=== PATIENT | male | born 1995 | race Two or more races ===

== ENCOUNTER 2020-10-16 07:58 | Outpatient (REF) | payer BC, SELFPAY ==
--- NOTE | ~2020-10-16 | US_ITS ---
EXAMINATION: US ABDOMEN LIMITED CLINICAL INFORMATION: Intra-abdominal and pelvic swelling, mass and lump. COMPARISON: None TECHNIQUE: Real-time imaging of the umbilical lump. FINDINGS: Targeted ultrasound of area of clinical concern. There is an umbilical hernia present, with a neck of approximately 1.2 cm. Hernia sac measures approximately 2.1 x 1.1 cm. Echogenic material within the hernia, with technologist reporting peristalsis, suggesting herniating bowel. Technologist reports hernia is painful. Incarcerated hernia cannot be excluded. US/US abdomen limited IMPRESSION: Umbilical hernia with a neck of approximately 2.1 cm. Peristalsis in the herniating tissue suggesting herniated bowel. Technologist reports hernia is painful. Incarcerated hernia cannot be excluded. Recommend close clinical correlation and management. Consider further evaluation with CT scan. This critical result was discussed with Brunilda Schwartz MD at 1625 hours on 10/16/2020 and it was ascertained that the content and urgency of the report was understood at the time of direct communication.
== END 2020-10-16 07:59 | disposition home or self-care (01) ==
LOC: HO.HMGCX 07:58
PROVIDERS: Visit Provider Nurse Practitioner Family
DX: R19.00 Intra-abdominal and pelvic swelling, mass and lump, unspecified site (principal)
CPT/HCPCS: 76705

== ENCOUNTER → 2020-11-10 14:03 | Outpatient (BNVA) | payer BC, SELFPAY | PROVIDERS: PCP Internal Medicine; Referring Provider Internal Medicine; Visit Provider Surgery ==

== ENCOUNTER 2020-11-25 08:23 | Day surgery (SDC) | payer BC, SELFPAY ==
[2020-11-19 11:00] VITALS: BMI 23.8
--- NOTE | 2020-11-24 08:34 | HO.ANESPROP2 ---
Documented by User: Emily Abdi 11/24/20 08:34 HPI - Anesthesia Eval Consult details Narrative: 25yo M for Hernia Repair Umbilical, Poss Mesh PMFSH Active Problems Active Problems: All Active Problems (Updated 11/10/20 @ 14:33 by Home Cabrera MD) Abdominal mass (Acute) Hernia (Acute) Umbilical hernia (Acute) No active medical problems (Acute) Past Medical History Medical History No active medical problems Umbilical hernia Surgical History Surgical History No significant past surgical history Social History Social History Alcohol intake: never Smoking Status: Never smoker Use of substances other than those prescribed or required for medical reasons: No Have you been hit, kicked, punched, or otherwise hurt by someone within the past year? If so, by whom?: No Are you DNR?: No Advance Directives: No Advance Directives Information Provided: No Advance Directives on File: No Recently lost weight without trying: No Eating poorly because of decreased appetite: No Nutrition Risks: No Nutritional Risk Meds Allergies Allergy/AdvReac Type Severity Reaction Status Date / Time No Known Allergies Allergy Unverified 10/07/20 11:56 Home Medications Medication Instructions Recorded Confirmed Last Taken Type No Known Home Meds 10/07/20 11/19/20 Unknown History Exam Exam Date and Time: November 24, 2020 0834 Height,Weight and Vital Signs: Height 5 ft 6 in Weight 67 kg Assessment and Plan Assessment Anesthesia Assessment: Chart Reviewed Documented by User: Norma Mercado 11/25/20 09:04 PMFSH Past Medical History Medical History No active medical problems Umbilical hernia Surgical History Surgical History No significant past surgical history Social History Social History Alcohol intake: never Smoking Status: Never smoker Use of substances other than those prescribed or required for medical reasons: No Have you been hit, kicked, punched, or otherwise hurt by someone within the past year? If so, by whom?: No Are you DNR?: No Advance Directives: No Advance Directives Information Provided: No Advance Directives on File: No Recently lost weight without trying: No Eating poorly because of decreased appetite: No Nutrition Risks: No Nutritional Risk Meds Allergies Allergy/AdvReac Type Severity Reaction Status Date / Time No Known Allergies Allergy Unverified 10/07/20 11:56 Home Medications Medication Instructions Recorded Confirmed Last Taken Type No Known Home Meds 10/07/20 11/19/20 Unknown History Exam Airway Mallampati Class: II TM Dist: >3cm Neck ROM: Full Assessment and Plan Assessment Anesthesia Assessment: Anesthesia Plan Discussed and Chart Reviewed Final Anesthetic Review NPO: Yes ASA Class: I Final Preanesthetic Review: No Changes in Pt Med Stat, Meds/Allgs Chart Reviewed, Consent Obtained/Reviewed and Anes Risks/Benef Reviewed Patient Risk: Low Procedure Risk: Low Assessment/Block/Sedation in SS: Assess/Block/Sedation-SS Anesthetic Plan Anesthetic Plan: GA Disposition: Standard PACU
[2020-11-25] VITALS (9 sets, daily range): BP systolic 89–122; BP diastolic 50–69; PULSE 56–85; RESP 16; TEMP 36.4–37.2; O2SAT 98–100
[2020-11-25] MEDS: Lactated Ringers 1,000 ML 100 ML IVCONT (09:03)
--- NOTE | 2020-11-25 09:15 | MHC.SHP ---
Pre-Procedural Eval Section B Chief Complaint: Umbilical Hernia Allergies: Allergies Allergy/AdvReac Type Severity Reaction Status Date / Time No Known Allergies Allergy Unverified 10/07/20 11:56 Plan I have reviewed the history and physical and performed a pertinent physical examination on my patient. No changes have occurred unless specified.
--- NOTE | 2020-11-25 10:06 | P.BOP_ITS ---
Brief Operative Note Date of Service: 11/25/20 Pre-op diagnosis: umbilical hernia Post-op diagnosis: same Procedure: repair of umbilical hernia with mesh Implants: mesh Surgeon: Home Cabrera MD Anesthesia: GLMA Was an [employer] Crewmember used for this Procedure?: No Estimated blood loss (mL): 2 Pathology: none sent Condition: stable Disposition: PACU
--- NOTE | 2020-11-25 10:08 | P.OP_ITS ---
Operative Note Operative Note Date of Service: 11/25/20 Narrative: Preop diagnosis: Umbilical hernia Postop diagnosis: Umbilical hernia Procedure: Repair of umbilical hernia Surgeon: Home Cabrera MD Fire Control System Installer: Claudy Gifford PA student The patient is a 25-year-old male with a mass on the infraumbilical area consistent with umbilical hernia. He wanted to proceed with repair in view of symptoms. He understood the technique of the procedure as well as the risks, benefits, and alternatives His was brought the operating room and placed supine on table under general anesthesia via laryngeal mask airway. A surgical time-out was done. The patient received cefazolin 2 g IV preoperatively The abdomen was prepped and draped in the usual sterile fashion. I infiltrated the planned line of incision with lidocaine 1%. I made a transverse curvilinear incision in the infraumbilical margin using a blade 15. This was carried down through the full-thickness of the skin and subcutaneous fat with electrocautery until we were able to visualize hernia containing fat. I lifted the umbilicus as a flap off of the hernia using sharp dissection with Metzenbaum scissors and electrocautery. I then proceeded to continue to sharply dissect the hernia off of the rest of the subcutaneous layer down to the fascia. I had to do sharp dissection of fibrous adhesions from the fascial edge to the hernia contents using Metzenbaum scissors. Eventually was able to free up the entire hernia and reduce this completely. I was able to clearly define the fascial defect. This was very small and was about 0.7 cm in diameter. Therefore felt that I would not be able to use a mesh to fit through this small hernia. I therefore applied a Chevy clamp to the fascia to lift this up and make sure that there were no bowel loops underneath. I created a [id number] stitch to close the defect using Maxon 1. I then tacked the umbilicus to the fascia using Dexon 3-0 stitch to re-create the dimple. I irrigated the area and closed the skin with a running Dexon 4-0 subcuticular stitch. I infiltrated the area with Marcaine 0.5% for postop analgesia. Steristrips and dressings were applied. The procedure was then completed. The patient tolerated procedure well with no complications noted. Initial and final counts of sponges and instruments were correct Estimated blood loss was about 2 cc The patient was extubated without difficulty and transferred to the recovery room with stable vital signs.
== END 2020-11-25 12:33 | disposition home or self-care (01) ==
PROVIDERS: PCP Nurse Practitioner Family; Visit Provider Surgery
PROC: (CPT 49585; principal; 2020-11-25 10:40)
DX: K42.9 Umbilical hernia without obstruction or gangrene (principal); K66.0 Peritoneal adhesions (postprocedural) (postinfection)
CPT/HCPCS: 49585; J0690; J1100; J1170; J1885; J2250; J2405; J3010

== ENCOUNTER → 2020-12-10 12:45 | Outpatient (BNVA) | payer BC, SELFPAY | PROVIDERS: PCP Nurse Practitioner Family; Referring Provider Nurse Practitioner Family; Visit Provider Surgery ==